=== PATIENT | female | born 1950 | race Two or more races ===

== ENCOUNTER 2017-09-03 12:35 | Outpatient (CLI) | payer MEDICARE, BC | END 2017-09-03 23:59 | disposition home or self-care (01) | LOC: WOU 12:35 | PROVIDERS: ATTEND Surgery | DX: T81.31XA Disruption of external operation (surgical) wound, not elsewhere classified, initial encounter (principal); M96.843 Postprocedural seroma of a musculoskeletal structure following other procedure; Z88.0 Allergy status to penicillin; Z91.040 Latex allergy status; G89.29 Other chronic pain; L81.8 Other specified disorders of pigmentation; R53.1 Weakness; Z98.42 Cataract extraction status, left eye; Z98.41 Cataract extraction status, right eye; Z98.1 Arthrodesis status | CPT/HCPCS: 11043; A6402; A6407 ==